=== PATIENT | female | born 2000 | race Caucasian/White ===

== ENCOUNTER 2020-11-01 18:25 | Emergency (ER) | payer OTHER ==
[2020-11-01 18:30] VITALS: BP 143/84; PULSE 107
--- NOTE | 2020-11-01 18:48 | EDM.PDOC ---
ED HPI GENERAL MEDICAL PROBLEM - General Chief Complaint: ENT Problem Stated Complaint: sore throat Time Seen by Provider: 11/01/20 18:30 Source of Information: Reports: Patient History Limitations: Reports: No Limitations - History of Present Illness INITIAL COMMENTS - FREE TEXT/NARRATIVE: Alda is a 20 year old who presents to ER with complaints of a severe sore throat for the last 24 hours or so. Has much discomfort with swallowing. Notes enlarged lymph nodes. Has had fevers, 101 on arrival here to ER. No sinus congestion, chest congestion or cough. No nausea or vomiting. No skin rash. Questions if she has thrush due to white patches. Onset: Gradual Duration: Hour(s): Location: Reports: Other (throat) Quality: Reports: Sharp, Throbbing Severity: Severe Improves with: Reports: None Associated Symptoms: Reports: Fever/Chills. Denies: Cough, Loss of Appetite, Nausea/Vomiting, Shortness of Breath Throat Pain Score (Numeric/FACES): 8 - Related Data Allergies Allergy/AdvReac Type Severity Reaction Status Date / Time animal dander Allergy Hives Verified 11/01/20 18:25 Penicillins Allergy Rash Verified 11/01/20 18:25 Home Meds: Home Meds Albuterol Sulfate 1 vial INH QID 01/30/16 [History] Albuterol Sulfate [Proair Hfa] 2 puff INH ASDIRECTED PRN 01/30/16 [History] Budesonide [Pulmicort Flexhaler] 2 puff INH BID 01/30/16 [History] Cetirizine [ZyrTEC] 10 mg PO BEDTIME 01/30/16 [History] Fluticasone Propionate [Flonase] 1 spray NASBOTH DAILY 01/30/16 [History] Naphazoline HCl/Pheniramine [Opcon-A Eye Drops] 1 drop EYEBOTH ASDIRECTED PRN 01/30/16 [History] Levonorgestrel/Ethin.estradiol [Larissia-28 Tablet] 1 tab PO DAILY 11/01/20 [History] Past Medical History Respiratory History: Reports: Asthma Social & Family History - Tobacco Use Tobacco Use Status *Q: Never Tobacco User ED ROS ENT - Review of Systems Review Of Systems: See Below Constitutional: Reports: Fever, Chills, Malaise. Denies: Decreased Appetite HEENT: Reports: Rhinitis, Throat Pain. Denies: Ear Pain, Sinus Problem Respiratory: Denies: Shortness of Breath, Cough Cardiovascular: Denies: Chest Pain, Edema, Lightheadedness Endocrine: Denies: Fatigue GI/Abdominal: Denies: Abdominal Pain, Constipation, Diarrhea, Nausea, Vomiting : Reports: No Symptoms Musculoskeletal: Reports: No Symptoms Skin: Reports: No Symptoms ED EXAM, ENT - Physical Exam Exam: See Below Exam Limited By: No Limitations General Appearance: Alert, WD/WN, No Apparent Distress Ears: Normal External Exam, Normal TMs Nose: Normal Inspection, Normal Mucousa, Clear Rhinorrhea Mouth/Throat: Pharyngeal Erythema, Tonsillar Erythema, Tonsillar Exudates Head: Normocephalic Neck: Normal Inspection, Supple, Lymphadenopathy (L), Lymphadenopathy (R) Respiratory/Chest: No Respiratory Distress, Lungs Clear, Normal Breath Sounds Cardiovascular: Regular Rate, Rhythm GI/Abdominal: Normal Bowel Sounds, Soft, Non-Tender Extremities: Normal Inspection, No Pedal Edema Neurological: Alert, Oriented Skin: Warm, Dry Course - Vital Signs Last Recorded V/S: Last Vital Signs Temp 101.5 F H 11/01/20 18:28 Pulse 107 H 11/01/20 18:28 Resp 16 11/01/20 18:28 BP 143/84 H 11/01/20 18:28 Pulse Ox 96 11/01/20 18:28 Departure - Departure Time of Disposition: 18:51 Disposition: Home, Self-Care 01 Condition: Fair Clinical Impression: Tonsillitis - Discharge Information *PRESCRIPTION DRUG MONITORING PROGRAM REVIEWED*: No *COPY OF PRESCRIPTION DRUG MONITORING REPORT IN PATIENT KRISTAN: No Additional Instructions: 1. Push fluids 2. Alternate tylenol with ibuprofen every 3 hours as needed for fever/ discomfort 3. Ceftin 250 mg twice a day for 10 days 4. Follow up if persisting concerns. Sepsis Event Note (ED) - Evaluation Sepsis Screening Result: Possible Sepsis Risk - Focused Exam Vital Signs: Vital Signs Temp Pulse Resp BP Pulse Ox 11/01/20 18:28 101.5 F H 107 H 16 143/84 H 96
[2020-11-01] MEDS: cefTRIAXone 1 GM Vial IM ONE (18:58)
[2020-11-01] MEDS: cefTRIAXone 1 GM Vial ONE (19:00)
== END 2020-11-01 19:03 | disposition home or self-care (01) ==
LOC: CC.ED 18:25
DX: J03.90 Acute tonsillitis, unspecified (principal); J45.909 Unspecified asthma, uncomplicated; Z91.048 Other nonmedicinal substance allergy status; Z88.0 Allergy status to penicillin; Z79.899 Other long term (current) drug therapy
CPT/HCPCS: 96372; 99283; J0696; J2001